=== PATIENT | male | born 1950 | race Caucasian/White ===

== ENCOUNTER 2020-05-12 16:18 | Emergency (ER) | payer MEDICARE, SELFPAY ==
[2020-05-12 16:48] VITALS: BP 177/91; PULSE 80; RESP 18; TEMP 36.7; O2SAT 99
[2020-05-12 17:13] LABS: Basophils Absolute Auto 0.1 K/mm3 (0.0-0.1); Basophils Percent Auto 0.8 % (0.2-1.2); Eosinophils Absolute Auto 0.1 K/mm3 (0-0.3); Eosinophils Percent Auto 0.9 % (0-4.4); Hematocrit 36.1 % (42.0-52.0); Immature Granulocyte Absolute 0.02 K/mm3 (0.00-0.031); Immature Granulocyte Percent A 0.2 % (0-0.5); Lymphocytes Absolute Auto 1.86 K/mm3 (0.9-3.2); Lymphocytes Percent Auto 20.6 % (18.3-44.2); Mean Corpuscular HGB Conc 33.2 g/dl (32-36); Mean Corpuscular Hemoglobin 30.3 pg (26-34); Mean Corpuscular Volume 91.2 fl (80-100); Mean Platelet Volume 9.1 fl (7.4-10.4); Monocytes Absolute Auto 0.6 K/mm3 (0.1-0.6); Monocytes Percent Auto 6.1 % (2.6-8.5); Neutrophils Absolute Auto 6.4 K/mm3 (1.3-6.7); Neutrophils Percent Auto 71.4 % (45.5-73.1); Platelet Count Result 333 k/mm3 (150-375); Red Blood Count 3.96 M/mm3 (4.6-6.20); Red Cell Distribution Width 11.6 % (11.5-14.5)
[2020-05-12 17:18] LABS: Add Urine Microscopic? YES; Appearance Urine Clear (Clear); Bilirubin Urine Negative (Negative); Blood Urine 1+ (Negative); Color Urine Straw (Yellow); Glucose Urine UA Negative (Negative); Ketones Urine Negative (Negative); Leukocyte Esterase Ur Negative LEU/UL (Negative); Mucus Urine Rare /lpf; Nitrate Urine Negative (Negative); Protein Urine Negative (Negative); RBC Urine 0-2 /hpf (0-2); Specific Grav Ur 1.009 (1.001-1.035); Urobilinogen Urine Negative mg/dL (<2.0); WBC Urine 0-3 /hpf
[2020-05-12 17:24] LABS: Anion Gap 11 mmol/L (8-16); Blood Urea Nitrogen 12 mg/dL (9-20); Calcium 9.2 mg/dL (8.4-10.2); Carbon Dioxide 26 mmol/L (22-30); Chloride 102 mmol/L (98-107); Estimated CRCL calculation 59 ml/min; Estimated Glomerular Filt Rate 60; Glucose 109 mg/dL (75-110); Potassium 4.2 mmol/L (3.4-5.0); Sodium 139 mmol/L (137-145)
[2020-05-12 17:51] VITALS: BP 159/90; PULSE 75; RESP 14; O2SAT 100
--- NOTE | 2020-05-12 18:19 | ED.GENADULT ---
HPI - General Adult General Chief complaint: Urogenital-Male Stated complaint: Urinary Retention Time Seen by Provider: 05/12/20 16:22 Source: RN notes reviewed History of Present Illness HPI narrative: Patient presents to emergency department from home for urinary retention. Patient states he was seen by his primary care physician Dr. Rodriguez for his yearly checkup today. He been noting some lower abdominal pain and had been sent for an ultrasound. He states he was called this afternoon with reports of the ultrasound with Dr. Escobaraying that he had urinary retention and need to go to the local emergency department to have a catheter placed. He states he is able to urinate last urinated 2 hours ago and states he had does have a good stream. Dr. Rodriguez and set up for urology from [facility] to call the patient tomorrow to set up an appointment and Flomax was called in for the patient by Dr. Rodriguez. He has not taken Flomax today. Denies any fevers or chills nausea vomiting diarrhea or any other symptoms Review of Systems Review of Systems: Narrative: Gen.: Denies fevers or chills ENT: Denies congestion Respiratory: Denies shortness of breath or cough CV: Denies chest pain or palpitations GI: Denies abdominal pain nausea, emesis or diarrhea see HPI Musculoskeletal: Denies back pain or muscle pain Neuro: Denies numbness, tingling, weakness or focal weakness Skin: Denies rash Except as documented, all other systems reviewed and negative COUNTS INCLUDE 234 BEDS AT THE [facility] Past Medical History Medical History (Updated 05/12/20 @ 18:22 by Stuart Phillip DO) Hypercholesterolemia Social History Social History (Updated 05/12/20 @ 18:20 by Stuart Phillip DO) Smoking status: Never smoker Gender identity (if verbalized by the patient): Male Exam Narrative: Exam Narrative: APPEARANCE: No acute distress, nontoxic, resting in bed HEENT: Normocephalic, atraumatic, OMM RESPIRATORY: No respiratory distress, clear to auscultation bilaterally with no rhonchi wheezing or rales CARDIOVASCULAR: RRR s murmur ABDOMINAL: Soft, nondistended, tender palpation suprapubic region no fullness present no tenderness right upper quadrant, left upper quadrant right lower quadrant left lower quadrant no rebound or guarding MUSCULOSKELETAl: Moves all extremities. No clubbing, cyanosis or edema. NEURO: Awake and alert. Following commands, speech normal, no focal deficits SKIN:: Warm, dry. Normal Color PSYCHIATRIC: Normal affect/mood Course Course Emergency Course: Graf catheter placed with a total of 2600 out it was clamped after initial 1000 Discussed with patient results of workup and diagnosis. Discussed need for follow-up with primary care, proper use of medication, and reasons to return to the emergency department. Patient understands and agrees to current treatment plan Vital Signs Vital signs: Vital Signs Temperature 98.1 F 05/12/20 16:48 Pulse Rate 80 05/12/20 16:48 Respiratory Rate 18 05/12/20 16:48 Blood Pressure 177/91 H 05/12/20 16:48 Pulse Oximetry 99 05/12/20 16:48 Temperature 98.1 F 05/12/20 16:48 Pulse Rate 75 05/12/20 17:51 Respiratory Rate 14 05/12/20 17:51 Blood Pressure 159/90 H 05/12/20 17:51 Pulse Oximetry 100 05/12/20 17:51 Medical Decision Making Vital Signs Vital Signs: Vital Signs Temperature 98.1 F 05/12/20 16:48 Pulse Rate 80 05/12/20 16:48 Respiratory Rate 18 05/12/20 16:48 Blood Pressure 177/91 H 05/12/20 16:48 Pulse Oximetry 99 05/12/20 16:48 Temperature 98.1 F 05/12/20 16:48 Pulse Rate 75 05/12/20 17:51 Respiratory Rate 14 05/12/20 17:51 Blood Pressure 159/90 H 05/12/20 17:51 Pulse Oximetry 100 05/12/20 17:51 Lab Data Result diagrams: 05/12/20 16:58 05/12/20 16:58 Labs: Lab Results 05/12/20 05/12/20 05/12/20 Range/Units 16:58 16:58 16:58 WBC 9.0 (4.5-10.0) K/mm3 RBC 3.96 L (4.6-6.20) M/mm3 Hgb 12
[2020-05-12] MEDS: TAMSULOSIN HCL 0.4 MG CAPSULE PO (18:41)
--- NOTE | 2020-05-15 09:27 | ED.GENADULT ---
HPI - General Adult General Chief complaint: Urogenital-Male Stated complaint: Urinary Retention Time Seen by Provider: 05/12/20 16:22 Source: RN notes reviewed History of Present Illness HPI narrative: Patient presents emergency department from home for urinary retention. Patient had been seen by his primary care physician today in office appointment noting some lower abdominal discomfort and had an ultrasound performed showing urinary retention. The patient had Flomax called in at that time by his primary care physician is being set up to follow-up with urology at [facility] in the next several days. The patient had an ultrasound after his visit and then when the results of been called his PCP had been told to come to the emergency department for Graf catheter. He notes some abdominal distention in his lower abdomen. He states he has been able to urinate and states he just urinated 2 hours ago denies any fevers or chills chest pain shortness of breath denies any history of urinary retention Related Data Allergies Allergy/AdvReac Type Severity Reaction Status Date / Time Sulfa (Sulfonamide Allergy Rash Verified 05/12/20 18:36 Antibiotics) Review of Systems Review of Systems: Narrative: Gen.: Denies fevers or chills ENT: Denies congestion Respiratory: Denies shortness of breath or cough CV: Denies chest pain or palpitations GI: Reports lower abdominal pain, denies nausea, emesis or diarrhea see HPI Musculoskeletal: Denies back pain or muscle pain Neuro: Denies numbness, tingling, weakness or focal weakness Skin: Denies rash Except as documented, all other systems reviewed and negative PMFSH Past Medical History Medical History Hypercholesterolemia Social History Social History Smoking status: Never smoker Gender identity (if verbalized by the patient): Male Exam Narrative: Exam Narrative: APPEARANCE: No acute distress, nontoxic, resting in bed HEENT: Normocephalic, atraumatic, OMM RESPIRATORY: No respiratory distress, clear to auscultation bilaterally with no rhonchi wheezing or rales CARDIOVASCULAR: RRR s murmur ABDOMINAL: Soft, nondistended, tender to palpation suprapubic region no tenderness right upper quadrant, left upper quadrant right lower quadrant left lower quadrant no rebound or MUSCULOSKELETAl: Moves all extremities. No clubbing, cyanosis or edema. NEURO: Awake and alert. Following commands, speech normal, no focal deficits SKIN:: Warm, dry. Normal Color PSYCHIATRIC: Normal affect/mood Course Course Emergency Course: Patient with catheter placed in the emergency department over 2000 mL out clamped after initial 1000 mL Discussed with patient results of workup and diagnosis. Discussed need for follow-up with primary care, proper use of medication, and reasons to return to the emergency department. Patient understands and agrees to current treatment plan Vital Signs Vital signs: Vital Signs Temperature 98.1 F 05/12/20 16:48 Pulse Rate 80 05/12/20 16:48 Respiratory Rate 18 05/12/20 16:48 Blood Pressure 177/91 H 05/12/20 16:48 Pulse Oximetry 99 05/12/20 16:48 Temperature 98.1 F 05/12/20 16:48 Pulse Rate 75 05/12/20 17:51 Respiratory Rate 14 05/12/20 17:51 Blood Pressure 159/90 H 05/12/20 17:51 Pulse Oximetry 100 05/12/20 17:51 Medical Decision Making Vital Signs Vital Signs: Vital Signs Temperature 98.1 F 05/12/20 16:48 Pulse Rate 80 05/12/20 16:48 Respiratory Rate 18 05/12/20 16:48 Blood Pressure 177/91 H 05/12/20 16:48 Pulse Oximetry 99 05/12/20 16:48 Temperature 98.1 F 05/12/20 16:48 Pulse Rate 75 05/12/20 17:51 Respiratory Rate 14 05/12/20 17:51 Blood Pressure 159/90 H 05/12/20 17:51 Pulse Oximetry 100 05/12/20 17:51 Lab Data Result diagrams: 05/12/20 16:58 05/12/20 16:58
== END 2020-05-12 19:10 | disposition home or self-care (01) ==
PROVIDERS: Emergency Provider Emergency Medicine; PCP Internal Medicine
DX: R33.9 Retention of urine, unspecified (principal); E78.00 Pure hypercholesterolemia, unspecified
CPT/HCPCS: 36415; 80048; 81001; 85025; 99283; A9270

== ENCOUNTER 2023-11-08 00:16 | Emergency (ER) | payer MEDICARE, SELFPAY ==
--- NOTE | ~2023-11-08 | XR_ITS ---
Clinical Indication: Chest tightness, shortness of breath PA and lateral views of the chest: Comparison: None Findings: The lungs are clear, without evidence of focal consolidation or pleural effusion. Cardiome diastinal silhouette is within normal limits. Mild compression deformity of T12 noted. Impression: Clear lungs. Mild compression deformity of T12. Reviewed, dictated and finalized at location . Impression: Clear lungs. Mild compression deformity of T12.
--- NOTE | 2023-11-08 00:17 | ECG_ITS ---
SEE SCANNED COPY FOR CONFIRMED REPORT MTDD
[2023-11-08 00:20] VITALS: BP 164/92; PULSE 79; RESP 18; TEMP 36.7; O2SAT 97
[2023-11-08 01:19] LABS: Basophils Absolute Auto 0.1 K/mm3 (0.0-0.1); Basophils Percent Auto 1.2 % (0.2-1.2); Eosinophils Absolute Auto 0.2 K/mm3 (0-0.3); Eosinophils Percent Auto 2.8 % (0-4.4); Hematocrit 40.3 % (42.0-52.0); Hemoglobin 13.4 g/dL (14.0-18.0); Immature Granulocyte Absolute 0.01 K/mm3 (0.00-0.031); Immature Granulocyte Percent A 0.1 % (0-0.5); Lymphocytes Absolute Auto 2.26 K/mm3 (0.9-3.2); Lymphocytes Percent Auto 29.9 % (18.3-44.2); Mean Corpuscular HGB Conc 33.3 g/dl (32-36); Mean Corpuscular Hemoglobin 30.6 pg (26-34); Mean Platelet Volume 9.8 fl (7.4-10.4); Monocytes Absolute Auto 0.6 K/mm3 (0.1-0.6); Monocytes Percent Auto 7.9 % (2.6-8.5); Neutrophils Absolute Auto 4.4 K/mm3 (1.3-6.7); Neutrophils Percent Auto 58.1 % (45.5-73.1); Platelet Count Result 259 k/mm3 (150-375); Red Blood Count 4.38 M/mm3 (4.6-6.20); White Blood Count 7.6 K/mm3 (4.5-10.0)
[2023-11-08 01:37] LABS: Prothrombin Time 13.8 Seconds (11.1-14.7)
[2023-11-08 01:38] LABS: Partial Thromboplastin Time 25.7 Seconds (22.3-36.8)
[2023-11-08 01:42] LABS: Alanine Aminotransferase 59 U/L (6-50); Albumin Level 4.7 g/dL (3.5-5.1); Alkaline Phosphatase 59 U/L (38-126); Anion Gap 8 mmol/L (4-12); Aspartate Amino Transferase 29 U/L (17-59); Bilirubin,Total 0.7 mg/dL (0.2-1.3); Blood Urea Nitrogen 17 mg/dL (9-20); Calcium 9.7 mg/dL (8.4-10.2); Carbon Dioxide 23 mmol/L (22-30); Chloride 107 mmol/L (98-107); Estimated CRCL calculation 78 ml/min; Estimated Glomerular Filt Rate > 60; Glucose 109 mg/dL (65-110); Lipase 80 U/L (23-300); Potassium 3.9 mmol/L (3.4-5.0); Sodium 138 mmol/L (137-145)
[2023-11-08 01:53] LABS: Troponin I < 0.012 ng/mL (0.000-0.034)
--- NOTE | 2023-11-08 03:06 | ECG_ITS ---
SEE SCANNED COPY FOR CONFIRMED REPORT. MTDD
[2023-11-08 03:30] VITALS: PULSE 64
[2023-11-08] MEDS: ASPIRIN 81 MG CHEWABLE TABLET 324 MG PO (04:13)
[2023-11-08 04:20] VITALS: O2SAT 100
[2023-11-08 04:28] LABS: Troponin I < 0.012 ng/mL (0.000-0.034)
[2023-11-08 04:32] VITALS: BP 141/82; PULSE 72; RESP 14; O2SAT 100
--- NOTE | 2023-11-08 05:17 | ED.GENADULT ---
HPI - General Adult General Chief complaint: Chest Pain Stated complaint: SOB, chest tightness Time Seen by Provider: 11/08/23 04:54 History of Present Illness HPI narrative: Patient 72-year-old gentleman who presents emergency department chief complaint of irregular heartbeat. Patient reports that he had a notification on his apple watch of possible AFib and had a Holter monitor placed yesterday the patient states this evening he had an episode of chest discomfort that lasted for about 4 minutes. The patient states it is currently resolved reports that he had no diaphoresis no radiation to his arm or neck the patient does report that he feels his heart is beating irregular but is not been fast. Related Data Allergies Allergy/AdvReac Type Severity Reaction Status Date / Time Sulfa (Sulfonamide Allergy Rash Verified 05/12/20 18:36 Antibiotics) Review of Systems Review of Systems: A 10 system review of systems was completed on the patient and is negative except for what is stated in the HPI. Nursing and ancillary documentation was reviewed. [facility] Past Medical History Medical History Hypercholesterolemia Social History Social History Smoking status: Never smoker Gender identity (if verbalized by the patient): Male Exam Narrative: GENERAL: Well-appearing, well-nourished, and in no acute distress. HEAD: Normocephalic, atraumatic. EYES: PERRLA and EOMI. ENT: Nares clear, no rhinorrhea or epistaxis. Mucous membranes moist. NECK: Supple. CHEST: Clear to auscultation. No respiratory distress. HEART: Irregular rate and rhythm. No murmur heard. Normal peripheral pulses. ABDOMEN: Soft, nontender, nondistended, normal active bowel sounds. EXTREMITIES: Normal range of motion. No edema. SKIN: Warm, dry, no rash. NEURO: No focal deficits. Alert and oriented x3. PSYCH: Normal mood and affect. Course Vital Signs Vital signs: Vital Signs Temperature 36.7 C 11/08/23 00:20 Pulse Rate 79 11/08/23 00:20 Respiratory Rate 18 11/08/23 00:20 Blood Pressure 164/92 H 11/08/23 00:20 Pulse Oximetry 97 11/08/23 00:20 Oxygen Delivery Room Air 11/08/23 00:20 Temperature 36.7 C 11/08/23 00:20 Pulse Rate 79 11/08/23 00:20 Respiratory Rate 18 11/08/23 00:20 Blood Pressure 164/92 H 11/08/23 00:20 Pulse Oximetry 97 11/08/23 00:20 Oxygen Delivery Room Air 11/08/23 00:20 Medical Decision Making MDM Narrative Medical decision making narrative: Differential diagnosis includes atrial fibrillation, ACS, electrolyte abnormality EKG showed atrial fibrillation that was rate controlled no ST elevation or ST depression CBC was within normal limits CMP was within normal limits troponin was 0 hour 3 hour Chest x-ray showed no acute finding The patient is currently rate controlled the case was discussed with Dr. Nieves who was on-call for Cardiology patient will be started on a DOAC at this time the patient did not require rate control medications Vital Signs Vital Signs: Vital Signs Temperature 36.7 C 11/08/23 00:20 Pulse Rate 79 11/08/23 00:20 Respiratory Rate 18 11/08/23 00:20 Blood Pressure 164/92 H 11/08/23 00:20 Pulse Oximetry 97 11/08/23 00:20 Oxygen Delivery Room Air 11/08/23 00:20 Temperature 36.7 C 11/08/23 00:20 Pulse Rate 79 11/08/23 00:20 Respiratory Rate 18 11/08/23 00:20 Blood Pressure 164/92 H 11/08/23 00:20 Pulse Oximetry 97 11/08/23 00:20 Oxygen Delivery Room Air 11/08/23 00:20 Lab Data 11/08/23 01:10 11/08/23 01:10 Labs: Lab Results 11/08/23 11/08/23 Range/Units 01:10 04:02 WBC 7.6 (4.5-10.0) K/mm3 RBC 4.38 L (4.6-6.20) M/mm3 Hgb 13.4 L (14.0-18.0) g/dL Hct 40.3 L (42.0-52.0) % MCV 92.0 (80-100) fl MCH 30.6 (26-34) p
[2023-11-08] MEDS: APIXABAN 5 MG TABLET PO (05:36)
== END 2023-11-08 06:34 | disposition home or self-care (01) ==
PROVIDERS: Emergency Provider Emergency Medicine; PCP Internal Medicine
DX: I48.91 Unspecified atrial fibrillation (principal); E78.00 Pure hypercholesterolemia, unspecified
CPT/HCPCS: 36415; 71046; 80053; 83690; 84484; 85025; 85610; 85730; 93005; 99284; A9270

== ENCOUNTER 2024-09-04 11:27 | Outpatient (CLI) | payer MEDICARE, SELFPAY | END 2024-09-04 11:28 | disposition home or self-care (01) | PROVIDERS: PCP Internal Medicine | DX: R94.31 Abnormal electrocardiogram [ECG] [EKG] (principal); I48.91 Unspecified atrial fibrillation | CPT/HCPCS: 93005 ==